=== PATIENT | female | born 1965 | race African-American/Black ===

== ENCOUNTER 2021-10-31 09:18 | Emergency (ER) | payer OTHER ==
[~2021-10-31] VITALS: Ht 160 cm; Wt 79.4 kg
--- NOTE | 2021-10-31 09:19 | NUR ---
PT BIBA TAKEN TO ER BED 4.
[2021-10-31 09:26] VITALS: BP 152/71
--- NOTE | 2021-10-31 10:39 | NUR ---
Note [email or web address] in EDM - 10/31/21 at 1039 by [email or web address] Patient discharged with v/s stable. Written and verbal after care instructions given and explained. Patient alert, oriented and verbalized understanding of instructions. Ambulatory with steady gait. All questions addressed prior to discharge. ID band removed. Patient advised to follow up with PMD. Rx of clindamycin, norco given. Patient educated on indication of medication including possible reaction and side effects. Opportunity to ask questions provided and answered.
[2021-10-31 12:00] VITALS: BP 107/55
--- NOTE | 2021-10-31 12:00 | NUR ---
Patient discharged with v/s stable. Written and verbal after care instructions ABOUT ACUTE BACK PAIN given and explained. Patient verbalized understanding. Ambulatory with steady gait. All questions addressed prior to discharge. Advised to follow up with PMD.
== END 2021-10-31 12:00 | disposition home or self-care (01) ==
LOC: MED 09:18
DX: I12.0 Hypertensive chronic kidney disease with stage 5 chronic kidney disease or end stage renal disease (principal); N18.6 End stage renal disease; Z99.2 Dependence on renal dialysis; M54.50 Low back pain, unspecified; F17.210 Nicotine dependence, cigarettes, uncomplicated; Z71.6 Tobacco abuse counseling
CPT/HCPCS: 72100; 99283